=== PATIENT | female | born 1950 | race Caucasian/White ===

== ENCOUNTER 2017-05-27 15:13 | Inpatient (IN) | payer MEDICARE, BC ==
[~2017-05-27] VITALS: Ht 162.6 cm; Wt 68.5 kg
[2017-05-27 16:05] VITALS: BP 130/81
[2017-05-27] MEDS ORDERED: DIPH1TAB28 PO (16:27)
[2017-05-27] MEDS ORDERED: GABA-534 PO (16:27)
[2017-05-27] MEDS ORDERED: ALPR1TAB7 PO (16:27)
[2017-05-27] MEDS ORDERED: TRAZ-144 PO (16:27)
[2017-05-27] MEDS ORDERED: ESCI10TA PO (16:27)
[2017-05-27] MEDS ORDERED: CHLO25CA10 PO (16:27)
[2017-05-27] MEDS ORDERED: TEMA15CA PO (16:27)
[2017-05-27 16:48] VITALS: BP 130/81
[2017-05-27] MEDS ORDERED: MAGNESIUM HYDROXIDE 30 ML UDC PO PRN (17:00)
[2017-05-27] MEDS ORDERED: ACETAMINOPHEN 325 MG TABLET PO PRN (17:00)
[2017-05-27] MEDS ORDERED: MAG HYDROX/AL HYDROX/SIMETH 30 ML UDC PO PRN (17:00)
[2017-05-27] MEDS: LORAZEPAM 0.5 MG TABLET PO PRN ×3 (17:11→22:54)
[2017-05-27] MEDS ORDERED: NICOTINE PATCH (14MG) 14 MG PATCH.TD24 TD ONE (18:30)
[2017-05-27 20:31] VITALS: BP 160/88
[2017-05-28] MEDS: LORAZEPAM 0.5 MG TABLET PO PRN ×4 (03:02→19:34)
[2017-05-28] MEDS ORDERED: CLONIDINE HCL 0.1 MG TABLET PO PRN (06:00)
[2017-05-28 07:49] LABS: ALBUMIN 3.6 g/dL (3.4-5.0); BILIRUBIN,TOTAL 0.7 mg/dL (0.2-1.0); CALCIUM, SERUM 8.1 mg/dL (8.5-10.1); CREATININE 0.9 mg/dL (0.6-1.3); POTASSIUM 3.7 mmol/L (3.5-5.1); TOTAL PROTEIN, SERUM 7.5 g/dL (6.4-8.2)
[2017-05-28 08:00] VITALS: BP 141/71
[2017-05-28] MEDS: ATENOLOL 50 MG TABLET PO SCH (08:12)
[2017-05-28] MEDS: NICOTINE PATCH (14MG) 14 MG PATCH.TD24 TD SCH (08:12)
[2017-05-28] MEDS: NEOMY SULF/BACITRAC ZN/POLY 15 GM TUBE TP SCH (08:15)
[2017-05-28] MEDS: LOPERAMIDE HCL (2 MG CAP) 2 MG CAPSULE PO PRN ×2 (09:42→18:13)
[2017-05-28 16:00] VITALS: BP 145/95
[2017-05-28] MEDS: busPIRone 5 MG TABLET PO SCH (16:28)
[2017-05-28 20:42] VITALS: BP 158/100
[2017-05-28] MEDS ORDERED: TRAZODONE 50 MG TABLET PO SCH (22:00)
[2017-05-28] MEDS: TEMAZEPAM 7.5 MG CAPSULE PO PRN (22:18)
[2017-05-29] MEDS: TEMAZEPAM 7.5 MG CAPSULE PO PRN (01:42)
[2017-05-29 07:24] LABS: CALCIUM, SERUM 8.9 mg/dL (8.5-10.1); CREATININE 0.6 mg/dL (0.6-1.3); MAGNESIUM 1.9 mg/dL (1.8-2.4); POTASSIUM 3.7 mmol/L (3.5-5.1)
[2017-05-29 07:29] LABS: BASOPHILS % (AUTO) 0.4 % (0.0-2.0); EOSINOPHILS # (AUTO) 0.1 /CMM (0.0-0.7); EOSINOPHILS % (AUTO) 2.2 % (0.0-6.0); HEMATOCRIT 37 % (33-45); HEMOGLOBIN 12.6 g/dL (11.5-14.8); LYMPHOCYTES # (AUTO) 1.4 /CMM (0.8-4.8); LYMPHOCYTES % (AUTO) 28.8 % (20.0-44.0); MEAN CORPUSCULAR HEMOGLOBIN 30 PG (26.0-33.0); MEAN CORPUSCULAR HGB CONC 34 g/dl (31.0-36.0); MEAN CORPUSCULAR VOLUME 89 fL (82-100); MONOCYTES # (AUTO) 0.4 /CMM (0.1-1.30); MONOCYTES % (AUTO) 8.5 % (2.0-12.0); NEUTROPHILS % (AUTO) 60.1 % (43.0-81.0); PLATELET COUNT (AUTO) 246 /CMM (150-450); RDW COEFFICIENT OF VARIATION 16.5 (11.5-15.0); RED BLOOD CELL COUNT(AUTO) 4.16 MIL/uL (4.0-5.2); WHITE BLOOD COUNT (AUTO) 4.9 K/uL (4.3-11.0)
[2017-05-29 08:00] VITALS: BP 143/82
[2017-05-29] MEDS: ESCITALOPRAM OXALATE (10 MG) 10 MG TABLET PO SCH (08:17)
[2017-05-29] MEDS: FOLIC ACID 1 MG TABLET PO SCH (08:17)
[2017-05-29] MEDS: NICOTINE PATCH (14MG) 14 MG PATCH.TD24 TD SCH (08:17)
[2017-05-29] MEDS: busPIRone 5 MG TABLET PO SCH ×3 (08:17→16:32)
[2017-05-29] MEDS: CYANOCOBALAMIN 100 MCG TABLET PO SCH (08:18)
[2017-05-29] MEDS: ATENOLOL 50 MG TABLET PO SCH (08:18)
[2017-05-29] MEDS: NEOMY SULF/BACITRAC ZN/POLY 15 GM TUBE TP SCH (08:19)
[2017-05-29] MEDS: THIAMINE HCL 100 MG TABLET PO SCH (08:21)
[2017-05-29] MEDS: MULTIVITAMINS,THERAGRAN 1 UDTAB TABLET PO SCH (08:21)
[2017-05-29] MEDS: LOPERAMIDE HCL (2 MG CAP) 2 MG CAPSULE PO PRN (11:15)
[2017-05-29 16:22] VITALS: BP 151/83
[2017-05-29 20:00] VITALS: BP 117/82
[2017-05-29] MEDS: LORAZEPAM 0.5 MG TABLET PO PRN (20:26)
[2017-05-29] MEDS: TRAZODONE 50 MG TABLET PO SCH (21:16)
[2017-05-30] MEDS: TEMAZEPAM 7.5 MG CAPSULE PO PRN (01:45)
[2017-05-30] MEDS: LORAZEPAM 0.5 MG TABLET PO PRN ×2 (03:19→20:43)
[2017-05-30 08:00] VITALS: BP 150/75
[2017-05-30] MEDS: MULTIVITAMINS,THERAGRAN 1 UDTAB TABLET PO SCH (08:37)
[2017-05-30] MEDS: NICOTINE PATCH (14MG) 14 MG PATCH.TD24 TD SCH (08:37)
[2017-05-30] MEDS: FOLIC ACID 1 MG TABLET PO SCH (08:37)
[2017-05-30] MEDS: ATENOLOL 50 MG TABLET PO SCH (08:37)
[2017-05-30] MEDS: ESCITALOPRAM OXALATE (10 MG) 10 MG TABLET PO SCH (08:37)
[2017-05-30] MEDS: busPIRone 5 MG TABLET PO SCH ×3 (08:38→18:08)
[2017-05-30] MEDS: THIAMINE HCL 100 MG TABLET PO SCH (08:38)
[2017-05-30] MEDS: CYANOCOBALAMIN 100 MCG TABLET PO SCH (08:38)
[2017-05-30] MEDS: NEOMY SULF/BACITRAC ZN/POLY 15 GM TUBE TP SCH (08:39)
[2017-05-30] MEDS: AMLODIPINE BESYLATE 2.5 MG TABLET PO SCH (10:30)
[2017-05-30] MEDS: LOPERAMIDE HCL (2 MG CAP) 2 MG CAPSULE PO PRN (14:24)
[2017-05-30 16:00] VITALS: BP 133/89
[2017-05-30 20:06] VITALS: BP 142/78
[2017-05-30] MEDS: TRAZODONE 50 MG TABLET PO SCH (21:04)
[2017-05-31] MEDS: TEMAZEPAM 7.5 MG CAPSULE PO PRN (00:16)
[2017-05-31 06:53] LABS: CALCIUM, SERUM 8.5 mg/dL (8.5-10.1); CREATININE 0.5 mg/dL (0.6-1.3); MAGNESIUM 1.8 mg/dL (1.8-2.4); POTASSIUM 3.7 mmol/L (3.5-5.1)
[2017-05-31 08:00] VITALS: BP 123/76
[2017-05-31] MEDS: busPIRone 5 MG TABLET PO SCH (08:26)
[2017-05-31] MEDS: MULTIVITAMINS,THERAGRAN 1 UDTAB TABLET PO SCH (08:26)
[2017-05-31] MEDS: ESCITALOPRAM OXALATE (10 MG) 10 MG TABLET PO SCH (08:27)
[2017-05-31] MEDS: NICOTINE PATCH (14MG) 14 MG PATCH.TD24 TD SCH (08:27)
[2017-05-31] MEDS: THIAMINE HCL 100 MG TABLET PO SCH (08:27)
[2017-05-31 08:28] VITALS: BP 123/76
[2017-05-31] MEDS: FOLIC ACID 1 MG TABLET PO SCH (08:28)
[2017-05-31] MEDS: CYANOCOBALAMIN 100 MCG TABLET PO SCH (08:28)
[2017-05-31] MEDS: ATENOLOL 50 MG TABLET PO SCH (08:28)
[2017-05-31] MEDS: AMLODIPINE BESYLATE 2.5 MG TABLET PO SCH (08:28)
[2017-05-31] MEDS: LORAZEPAM 0.5 MG TABLET PO PRN (08:29)
[2017-05-31] MEDS: NEOMY SULF/BACITRAC ZN/POLY 15 GM TUBE TP SCH (09:01)
== END 2017-05-31 11:45 | disposition home or self-care (01) | DRG 885 ==
LOC: EDSEX 15:53 → GPS 15:53
PROVIDERS: ADMIT Psychiatry & Neurology Psychosomatic Medicine; ATTEND Nurse Practitioner Acute Care
DX: F33.2 Major depressive disorder, recurrent severe without psychotic features (principal); F29 Unspecified psychosis not due to a substance or known physiological condition; F10.20 Alcohol dependence, uncomplicated; I10 Essential (primary) hypertension; F17.210 Nicotine dependence, cigarettes, uncomplicated; S80.922A Unspecified superficial injury of left lower leg, initial encounter; S80.921A Unspecified superficial injury of right lower leg, initial encounter; F43.10 Post-traumatic stress disorder, unspecified; X78.9XXA Intentional self-harm by unspecified sharp object, initial encounter; Y93.9 Activity, unspecified; Y92.009 Unspecified place in unspecified non-institutional (private) residence as the place of occurrence of the external cause; S70.922A Unspecified superficial injury of left thigh, initial encounter; S70.921A Unspecified superficial injury of right thigh, initial encounter; Z73.6 Limitation of activities due to disability
CPT/HCPCS: 36415; 80048-TC; 80053-TC; 80061-TC; 82746; 83735-TC; 85025-TC; 87081-TC